=== PATIENT | male | born 1960 | race Caucasian/White ===

== ENCOUNTER 2024-05-19 10:11 | Emergency (ER) | payer MEDICARE, SELFPAY ==
--- NOTE | ~2024-05-19 | XR_ITS ---
EXAMINATION: XR chest 2V DATE: 05/19/2024 11:01 INDICATION: Productive cough. TECHNIQUE: Frontal and lateral views of the chest were obtained. COMPARISON: Chest single view 05/28/2008, CT abdomen and pelvis 09/16/2012 FINDINGS: There is a small right pleural effusion. There are airspace opacities at the lung bases. No pneumothorax. The heart size is normal. There is chronic anterior wedging of multiple vertebral bodi es. IMPRESSION: 1. Airspace opacities at the lung bases, consistent with atelectasis versus pneumonia. 2. Small right pleural effusion. Reviewed, dictated and finalized at location A. [employer] IMPRESSION: 1. Airspace opacities at the lung bases, consistent with atelectasis versus pne umonia. 2. Small right pleural effusion.
[2024-05-19 10:29] VITALS: BP 150/71; PULSE 65; RESP 16; TEMP 36.3; O2SAT 95
--- NOTE | 2024-05-19 10:30 | ED_ITS ---
HPI - URI/Sore Throat General Chief Complaint: Upper Respiratory Infection Stated Complaint: cough,breathing harder Hx asthma Time Seen by Provider: 05/19/24 10:31 Source: patient, RN notes reviewed and old records reviewed Mode of arrival: ambulatory Limitations: no limitations History of Present Illness HPI Narrative: Patient with history of asthma presents with complaints of cough for 1 week. He reports that cough is increasingly congested. States that at times he does have some wheezing and shortness of breath. He is not in any distress at this time. He is unsure if he has had any fever at home. He has been taking multiple [id number] medications with moderate relief. He voices no other concerns or complaints at this time. Denies any injury or trauma Related Data Home Medications ?Medication ?Instructions ?Recorded ?Confirmed ?Last Taken ?Type amlodipine 5 mg tablet 5 mg PO DAILY 05/19/24 05/19/24 Unknown History cyclobenzaprine 10 mg tablet 10 mg PO DAILY PRN muscle spasm 05/19/24 05/19/24 Unknown History glimepiride 4 mg tablet 4 mg PO DAILY 05/19/24 05/19/24 Unknown History lisinopril 20 mg tablet 20 mg PO DAILY 05/19/24 05/19/24 Unknown History metformin 1,000 mg tablet 1,000 mg PO DAILY 05/19/24 05/19/24 Unknown History naproxen 250 mg tablet 250 mg PO BID 05/19/24 05/19/24 Unknown History simvastatin 10 mg tablet 10 mg PO QPM 05/19/24 05/19/24 Unknown History Allergies Allergy/AdvReac Type Severity Reaction Status Date / Time Penicillins Allergy Unknown Unknown Verified 05/19/24 10:45 Review of Systems Review of Systems: All systems reviewed & are unremarkable except as noted in HPI and below Constitutional: Constitutional: Reports no additional constitutional complaints, Reports body ache(s) and Reports chills ENT: Reports system reviewed and no additional complaints, except as documented and Reports sore throat Cardiovascular: Cardiovascular: Reports no additional cardiovascular complaints Respiratory: Respiratory: Reports no additional respiratory complaints, Reports chest congestion, Reports cough, Reports dyspnea on exertion and Reports wheezing Gastrointestinal: Gastrointestinal: Reports no additional gastrointestinal complaints PMFSH Comments At the time of my signature, I reviewed and agree with the nursing past medical, surgical, social, and family history. There is no relevant family history pertinent to the patient complaint. Exam Const: General: cooperative, no acute distress, alert and awake Orientation/consciousness: oriented to person, oriented to place and oriented to time HENMT: Head: normal to inspection Throat: posterior oropharynx abnormal erythema Resp: Effort & Inspection: normal respiratory effort and able to speak in complete sentences Auscultation: clear to auscultation bilaterally, no crackles, no rales, no rhonchi, no wheezes and diminished lung sounds Cardio: Palpation: normal PMI Rate: regular rate Rhythm: regular rhythm Heart sounds: S1 normal heart sound present and S2 normal heart sound present Neuro: General: oriented to person, oriented to place and oriented to time Cranial nerves: Yes CN's II-XII intact bilaterally Psych: Appearance: grossly normal Thought process: Normal thought process present Insight: Good insight present (Psych) Judgement: Good judgement present (Psych) Course Course Level of Care: Express Care Visit Vital Signs Vital signs: Vital Signs Temperature 97.3 F L 05/19/24 10:29 Pulse Rate 65 05/19/24 10:29 Respiratory Rate 16 05/19/24 10:29 Blood Pressure 150/71 H 05/19/24 10:29 Pulse Oximetry 95 05/19/24 10:29 Oxygen Delivery Room Air 05/19/24 10:29 Temperature 97.3 F L 05/19/24 10:29 Pulse Rate 65 05/19/24 10:29 Respiratory Rate 16 05/19/24 10:29 Blood Pressure 150/71 H 05/19/24 10:29 Pulse Oximetry 95 05/19/24 10:29 Oxygen Delivery Room Air 05/19/24 10:29 Reviewed MDM - URI/Sore Throat Differential Diagnosis Differential diagnosis: Likely upper respiratory infection, viral infection and bronchitis Medical Records Attestation: I reviewed the patient's medical records. Lab Data Attestation: I reviewed the patient's lab results. Imaging Data Attestation: I personally reviewed and interpreted this imaging study as follows: My impression: Patient not in any distress, including respiratory distress. X-ray does show pneumonia. Wrist patient is nontoxic appearing, stable for discharge home on p .o. antibiotic therapy with steroids and bronchodilator. Strict emergency department precautions. He must follow up with primary care provider. Discharge instructions reviewed with patient, as well as provided in writing per nursing staff. The instructions also include specific and strict return/GO TO THE ER as well as f/u information. All questions have been answered, and the patient deny any further questions with discharge and discharge plan. Some parts of this dictation were generated by voice recognition software and may contain typographical and/or grammatical inaccuracies. Radiologist's impression: [facility] [address] [place] [address] XRay Report Signed Patient: Wiley Wilson : 1960 MR#: [id number] Age: 63 Acct:[id number] Loc: [facility] ADM Date: 05/19/24Attending Dr: Ordering Physician: Alyssa Thornton FNP Date of Service: 05/19/24 Procedure(s): XR chest 2V Accession Number(s): [id number] cc: Alyssa Thornton FNP; Deangelo Christie MD~ EXAMINATION: XR chest 2V DATE: 05/19/2024 11:01 INDICATION: Productive cough. TECHNIQUE: Frontal and lateral views of the chest were obtained. COMPARISON: Chest single view 05/28/2008, CT abdomen and pelvis 09/16/2012 FINDINGS: There is a small right pleural effusion. There are airspace opacities at the lung bases. No pneumothorax. The heart size is normal. There is chronic anterior wedging of multiple vertebral bodies. IMPRESSION: 1. Airspace opacities at the lung bases, consistent with atelectasis versus pneumonia. 2. Small right pleural effusion. Reviewed, dictated and finalized at location A. [employer] Please be advised this is a medical document. It is intended for [id number] communication. It is written in medical language and may contain unfamiliar abbreviations or verbiage. Medical documents are intended to carry relevant information, facts as evident, and the clinical opinion of the practitioner at the time of the encounter. This report may have been done utilizing a voice recognition system. Attempts have been made to correct errors. However, there may be uncorrected grammatical, spelling, and recognition errors present. The file time of this note does not necessarily represent the time of service. Dictated By: Matias Lyon MD 05/19/24 1106 Signed By: <Electronically signed by Matias Lyon MD in OV> Discharge Plan Discharge Clinical Impression: Pneumonia Qualifiers: Pneumonia type: due to unspecified organism Laterality: bilateral Lung location: lower lobe of lung Qualified Code(s): J18.9 - Pneumonia, unspecified organism Patient Disposition: Home, Self-Care Condition: Stable Instructions: Antibiotic Form, Bacterial Pneumonia (ED) Additional Instructions: Take medications as prescribed. Follow-up with primary care provider without fail. Emergency department immediately for any new or worse symptoms Patient Language: [place] Prescriptions: New doxycycline hyclate 100 mg capsule 100 mg PO BID Qty: 20 0RF prednisone 50 mg tablet 50 mg PO DAILY Qty: 5 0RF albuterol sulfate [Ventolin HFA] 90 mcg/actuation HFA aerosol inhaler 2 puff inhalation QID PRN (Reason: shortness of breath or wheezing) Qty: 8.5 0RF No Action amlodipine 5 mg tablet 5 mg PO DAILY cyclobenzaprine 10 mg tablet 10 mg PO DAILY PRN (Reason: muscle spasm) glimepiride 4 mg tablet 4 mg PO DAILY lisinopril 20 mg tablet 20 mg PO DAILY metformin 1,000 mg tablet 1,000 mg PO DAILY naproxen 250 mg tablet 250 mg PO BID simvastatin 10 mg tablet 10 mg PO QPM Follow-up/Referrals: Deangelo Christie MD [Primary Care Provider] - 3 Days (pneumonia) Time of Disposition: 11:16
== END 2024-05-19 11:22 | disposition home or self-care (01) ==
PROVIDERS: Emergency Provider Nurse Practitioner Family; PCP Emergency Medicine
DX: J18.9 Pneumonia, unspecified organism (principal); I10 Essential (primary) hypertension; E78.00 Pure hypercholesterolemia, unspecified; J45.909 Unspecified asthma, uncomplicated; E11.9 Type 2 diabetes mellitus without complications; Z79.84 Long term (current) use of oral hypoglycemic drugs
CPT/HCPCS: 71046; 99203; G0463